=== PATIENT | female | born 1970 | race Caucasian/White ===

== ENCOUNTER 2018-07-06 20:59 | Emergency (ER) | payer SELFPAY ==
[~2018-07-06] VITALS: Ht 170.2 cm; Wt 51.7 kg
[2018-07-06 21:19] VITALS: BP 115/90
--- NOTE | 2018-07-06 21:24 | NUR ---
TO BED # 4 AMBULATORY, REPORT GIVEN TO KEMAR PETERS
--- NOTE | 2018-07-06 21:26 | NUR ---
PT PRESENTS TO ER WITH NECK PAIN RADIATING TO LOWER BACK X1 HR. PT STATES SHE WAS HAVING A FRIEND CRACK HER NECK. UPON CRACKING NECK, PT STATES HEARING LOUD POP, AND EXPERIANCED 10/10 RADIATING PAIN WITH MILD WEAKNESS TO RIGHT HAND AND TINGLING. VSS. ER MD AWARE. CONTINUE TO MONITOR.
--- NOTE | 2018-07-06 21:33 | NUR ---
PT ESCORTED TO XRAY VIA WHEEL CHAIR. TAKEN BY [email or web address].
[2018-07-06] MEDS ORDERED: NACL 0.9% 1,000 ML IV ONE (21:55)
--- NOTE | 2018-07-06 22:08 | NUR ---
Dr. Licea evaluating patient at bedside.
[2018-07-06 22:17] LABS: BASOPHILS # (AUTO) 0.1 K/uL (0.00-0.22); BASOPHILS % (AUTO) 0.9 % (0.0-2.0); EOSINOPHILS # (AUTO) 0.1 K/uL (0-0.4); EOSINOPHILS % (AUTO) 1.4 % (0.0-4.0); HEMATOCRIT 43.3 % (36-48); HEMOGLOBIN 14.5 g/dL (12.0-16.0); LYMPHOCYTES # (AUTO) 3.6 K/uL (2.5-16.5); LYMPHOCYTES % (AUTO) 51.5 % (20.5-51.1); MEAN CORPUSCULAR HEMOGLOBIN 32 pg (27-31); MEAN CORPUSCULAR HGB CONC 34 g/dL (33-37); MEAN CORPUSCULAR VOLUME 94.6 fL (80-94); MONOCYTES # (AUTO) 0.6 K/uL (0.8-1.0); NEUTROPHILS # (AUTO) 2.6 K/uL (1.8-7.7); NEUTROPHILS % (AUTO) 37.2 % (42.2-75.2); PLATELET COUNT (AUTO) 236 K/uL (140-450); RED BLOOD CELL COUNT(AUTO) 4.57 MIL/uL (4.20-5.40); RED CELL DISTRIBUTION WIDTH 13.5 % (11.6-13.7); WHITE BLOOD COUNT (AUTO) 7.1 K/uL (4.8-10.8)
[2018-07-06] MEDS ORDERED: fentaNYL 0.05 MG/ML VIAL IVP ONE (22:20)
[2018-07-06 22:30] LABS: ANION GAP 11.5 (8-16); CARBON DIOXIDE 26.3 mmol/L (21-32); CREATININE 0.6 mg/dL (0.6-1.3); POTASSIUM 3.8 mmol/L (3.5-5.1)
[2018-07-06 22:32] LABS: ALBUMIN 4.4 g/dL (3.4-5.0); TOTAL BILIRUBIN 0.2 mg/dL (0.0-1.0)
[2018-07-06 22:34] LABS: PROTHROMBIN TIME 9.6 secs (10.8-13.4)
--- NOTE | 2018-07-06 23:03 | NUR ---
PT RETURN FROM CT
--- NOTE | 2018-07-07 00:35 | NUR ---
Renny chau in ED - 07/07/18 at 0039 by [facility] Patient discharged with v/s stable. Written and verbal after care instructions given and explained. Patient verbalized understanding. Ambulatory with steady gait. All questions addressed prior to discharge. Advised to follow up with PMD.
--- NOTE | 2018-07-07 00:38 | NUR ---
GAVE REPORT TO KARTHIK PETERS, CHARGE NURSE AT [facility]. PT'S VSS AT THIS TIME. 02/23 PAIN. AWAITING TRANSPORTATION. CONTINUE TO MONITOR.
--- NOTE | 2018-07-07 00:53 | NUR ---
PT TAKEN BY [facility] TRANSPORT TO [facility]
[2018-07-07 00:54] VITALS: BP 130/83
--- NOTE | 2018-07-07 01:55 | NUR ---
Patient transfered to [facility] with v/s stable. Transported via [facility]. Written and verbal after care instructions given and explained. Patient verbalized understanding. All questions addressed prior to discharge.
== END 2018-07-07 00:53 | disposition short-term general hospital (02) ==
LOC: MED 20:59
DX: G95.29 Other cord compression (principal); Z88.0 Allergy status to penicillin; X58.XXXA Exposure to other specified factors, initial encounter; Y93.89 Activity, other specified; Y92.89 Other specified places as the place of occurrence of the external cause; Y99.8 Other external cause status
CPT/HCPCS: 36415; 70491; 72040; 80053; 85025; 85610; 85730; 96374; 99285; J3010; Q9967; 81025

== ENCOUNTER 2018-07-09 20:15 | Emergency (ER) | payer SELFPAY ==
[~2018-07-09] VITALS: Ht 170.2 cm; Wt 51.7 kg
[2018-07-09 20:18] VITALS: BP 116/67
--- NOTE | 2018-07-09 20:55 | NUR ---
No answer when called in [facility].
--- NOTE | 2018-07-09 20:55 | NUR ---
PATIENT LEFT WITHOUT BEING SEEN BY DR. Moreno. NO FURTHER CARE PROVIDED FOR PATIENT.
--- NOTE | 2018-07-09 20:57 | NUR ---
Renny chau in [facility] - 07/09/18 at 2057 by [email or web address] PATIENT TO ER BED 1.
--- NOTE | 2018-07-09 21:10 | NUR ---
No answer when called.
--- NOTE | 2018-07-09 21:35 | NUR ---
No answer when called.
== END 2018-07-09 20:55 | disposition left against medical advice (07) ==
LOC: MED 20:15
DX: R20.2 Paresthesia of skin (principal); Z53.21 Procedure and treatment not carried out due to patient leaving prior to being seen by health care provider